=== PATIENT | male | born 1965 | race Caucasian/White ===

== ENCOUNTER 2023-12-09 09:19 | Emergency (ER) | payer OTHER, SELFPAY ==
[2023-12-09] VITALS (9 sets, daily range): BP systolic 121–148; BP diastolic 82–99; BMI 28.2
[2023-12-09 09:23] LABS: Glucose - Point of Care 81 mg/dl (70-99)
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
[2023-12-09 10:08] LABS: % Basophils 0.7 % (0-2); % Eosinophils 1.3 % (0-6); % Immature Granulocytes 0.4 % (0-0.5); % Lymphocytes 39.8 % (20.5-51.1); % Monocytes 8.7 % (1.7-9.3); % Neutrophils 49.1 % (42.2-75.2); Absolute Eosinophils 0.1 10^3/uL (0-0.7); Absolute Lymphocytes 1.8 10^3/uL (1.2-3.4); Absolute Monocytes 0.4 10^3/uL (0.1-0.6); Absolute Neutrophils 2.2 10^3/uL (1.4-6.5); Hematocrit 44.4 % (39.0-52.0); Mean Corp Hgb Conc. 33.8 g/dL (33.0-37.0); Mean Corpuscular Volume 88.8 fL (80.0-94.0); Mean Platelet Volume 8.5 fL (7.4-10.4); Nucleated Red Blood Cells % 0 % (-); Platelet Count 300 10^3/uL (130-400); Red Cell Dist. Width 12.3 % (11.5-14.5); White Blood Cell Count 4.5 10^3/uL (4.8-10.8)
[2023-12-09 10:20] LABS: INR 1.01; PT 13.1 Sec (11.4-14.6)
[2023-12-09 10:21] LABS: APTT 29.9 Sec (23.4-35.0)
[2023-12-09 10:32] LABS: Troponin I < 0.012 ng/ml
[2023-12-09 11:44] LABS: Blood Urea Nitrogen 24 mg/dl (9-20); Calcium 8.9 mg/dl (8.4-10.2); Carbon Dioxide 24 mmol/L (22-30); Chloride 106 mmol/L (98-107); Estimated Creatinine Clearance 75 ml/min; Glucose 90 mg/dl (70-99); Sodium 136 mmol/L (135-145); eGFR > 60.00
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
== END 2023-12-09 16:24 | disposition home or self-care (01) ==
LOC: EMR 09:19
PROVIDERS: EMERGENCY PHYSICIAN Emergency Medicine; FAMILY PHYSICIAN Physician Assistant Medical
DX: F07.81 Postconcussional syndrome (principal); R47.01 Aphasia; R11.0 Nausea; G44.309 Post-traumatic headache, unspecified, not intractable; H93.13 Tinnitus, bilateral; M54.2 Cervicalgia; H53.8 Other visual disturbances; M25.512 Pain in left shoulder; R41.89 Other symptoms and signs involving cognitive functions and awareness; R26.89 Other abnormalities of gait and mobility; R20.2 Paresthesia of skin; G47.00 Insomnia, unspecified; V44.6XXA Car passenger injured in collision with heavy transport vehicle or bus in traffic accident, initial encounter; Y92.410 Unspecified street and highway as the place of occurrence of the external cause; M47.812 Spondylosis without myelopathy or radiculopathy, cervical region
CPT/HCPCS: 99285; 70450; 70496; 70498; 70551; 72125; 80048; 82962; 84484; 85025; 85610; 85730; 93005; Q9967